=== PATIENT | female | born 1985 | race Caucasian/White ===

== ENCOUNTER → 2020-03-21 10:16 | Outpatient (CLI) | payer OTHER, MEDICAID, SELFPAY ==
--- NOTE | 2020-03-21 10:19 | DI.RAD.S_ITS ---
PROCEDURE: XR ELBOW RT MIN 3V INDICATIONS: right elbow pain TECHNIQUE: 3 views of the elbow were acquired. COMPARISON: None. FINDINGS: Bones: No acute fractures or dislocations. No suspicious bony lesions. Soft tissues: No elbow joint effusion. An 8 mm calcification is seen posterior to the olecranon that may indicate distal triceps calcific tendinopathy versus a developing enthesophyte. IMPRESSION: No acute fracture. Small calcification posterior to the olecranon may indicate distal triceps calcific tendinopathy. Dictated by: Roland Salomon M.D. on 03/21/2020 at 10:46 Approved by: Roland Salomon M.D. on 03/21/2020 at 10:48
== END ==
PROVIDERS: Referring Provider Physician Assistant; Visit Provider Physician Assistant
DX: M25.521 Pain in right elbow (principal)
CPT/HCPCS: 73080

== ENCOUNTER → 2021-06-09 19:44 | Outpatient (CLI) | payer OTHER, MEDICAID, SELFPAY ==
[2021-06-09 20:24] VITALS: BP 142/82; PULSE 75; RESP 12; TEMP 36.6; O2SAT 100; BMI 36.6
[2021-06-09 22:44] LABS: Add Manual Diff / Slide Review NO; Basophils Absolute Auto 0 /uL (0-100); Basophils Percent Auto 0.5 % (0-2); Eosinophils Absolute Auto 200 /uL (0-450); Hematocrit 40.6 % (36-46); Hemoglobin 13.9 g/dL (12.0-16.0); Lymphocytes Absolute Auto 1200 /uL (1100-4500); Lymphocytes Percent Auto 16.2 % (25-40); Mean Corpuscular HGB Conc 34.3 % (30-36); Mean Corpuscular Hemoglobin 29.2 PG (26-34); Mean Corpuscular Volume 85.1 fL (80-100); Monocytes Absolute Auto 500 /uL (0-900); Monocytes Percent Auto 7.3 % (3-14); Neutrophils Absolute Auto 5500 /uL (1500-7000); Platelet Count 244 X10^3/uL (150-400); Red Blood Cell Count 4.77 X10^6/uL (4.0-5.2); Red Cell Distribution Width 13.1 % (11.6-14.8); White Blood Cell Count 7.5 X10^3/uL (4.5-11.0)
[2021-06-09 22:47] LABS: Alanine Aminotransferase 29 IU/L (<35); Albumin 4.3 g/dL (3.5-5.0); Albumin Globulin Ratio 1.5 (1.0-2.8); Alkaline Phosphatase 80 U/L (38-126); Aspartate Aminotransferase 25 IU/L (14-36); BUN Creatinine Ratio 17.6 (6-22); Bilirubin Total 0.6 mg/dL (0.2-1.3); Blood Urea Nitrogen 12 mg/dL (7-17); Carbon Dioxide 28 mmol/L (22-32); Chloride 103 mmol/L (98-107); Estimated Glomerular Filt Rate > 60.0 mL/min (>60); Globulin 2.9 g/dL (1.7-4.1); Glucose 108 mg/dL (70-100); HEMOLYSIS < 15 (0-50); Lipase 41 U/L (23-300); Potassium 4.2 mmol/L (3.4-5.1); Sodium 136 mmol/L (137-145); Total Protein 7.2 g/dL (6.3-8.2)
== END ==
LOC: ED 06-10 01:16 → LAB 06-26 07:55
PROVIDERS: Visit Provider Emergency Medicine
DX: R10.9 Unspecified abdominal pain (principal)
CPT/HCPCS: 36415; 80053; 81003; 83690; 85025; 99283

== ENCOUNTER → 2023-07-08 10:43 | Outpatient (CLI) | payer OTHER, MEDICAID, SELFPAY | PROVIDERS: Visit Provider Nurse Practitioner Family | DX: J35.8 Other chronic diseases of tonsils and adenoids (principal) | CPT/HCPCS: 87070; 87147; 87880 ==

== ENCOUNTER → 2023-12-27 12:28 | Outpatient (CLI) | payer OTHER, MEDICAID, SELFPAY ==
--- NOTE | 2023-12-27 12:30 | DI.RAD.S_ITS ---
PROCEDURE: XR SHOULDER LT MIN 2V INDICATIONS: SHOULDER PAIN TECHNIQUE: Three views of the shoulder were acquired. COMPARISON: None. FINDINGS: Bones: No acute fractures. Questionable slight inferior subluxation at the glenohumeral joint. No suspicious bone lesions. Soft tissues: There is amorphous calcification in the soft tissues in the acromiohumeral interval spanning a distance of nearly 2.5 cm. Soft tissues are otherwise normal. IMPRESSION: No acute fractures. Prominent amorphous soft tissue in the acromial humeral interval may be calcific bursitis versus calcific tendinitis. There is slight apparent inferior humeral head subluxation. This may be positioning versus presence of joint effusion. Dictated by: Yasemin Segundo M.D. on 12/27/2023 at 15:40 Approved by: Yasemin Segundo M.D. on 12/27/2023 at 15:42
== END ==
LOC: RAD 12:29
PROVIDERS: PCP Registered Nurse; Referring Provider Registered Nurse; Visit Provider Registered Nurse
DX: M25.512 Pain in left shoulder (principal)
CPT/HCPCS: 73030